=== PATIENT | male | born 1995 | race African-American/Black ===

== ENCOUNTER 2019-12-18 16:33 | Emergency (ER) | payer SELFPAY ==
[~2019-12-18] VITALS: Ht 177.8 cm; Wt 109.0 kg
[2019-12-18 17:59] LABS: BASOPHILS % 0.4 % (0.0-2.0); EOSINOPHILS % 2.1 % (0.0-5.0); HEMATOCRIT. 47.7 % (42.0-52.0); HEMOGLOBIN. 16.5 g/dL (14.0-18.0); LYMPHOCYTES % 25.6 % (20.0-50.0); MEAN CORPUSCULAR HEMOGLOBIN 29.8 pg (28.0-32.0); MEAN CORPUSCULAR VOLUME 85.8 fL (80.0-94.0); MONOCYTES % 8.3 % (2.0-8.0); NEUTROPHILS % 63.6 % (40.0-76.0); PLATELET 295 x1000/uL (130-400); RED BLOOD CELL COUNT 5.55 mill/uL (4.7-6.1); RED CELL DISTRIBUTION WIDTH 13.2 % (11.6-14.6)
[2019-12-18 18:05] LABS: CHLORIDE 104 mEq/L (98-107)
[2019-12-18] MEDS ORDERED: ACETAMINOPHEN 325MG TABLET PO ONE (18:30)
[2019-12-18 19:40] VITALS: BP 127/73
== END 2019-12-18 19:55 | disposition home or self-care (01) ==
LOC: ER 16:33
DX: R51 Headache (principal); R22.1 Localized swelling, mass and lump, neck; J45.909 Unspecified asthma, uncomplicated
CPT/HCPCS: 36415; 70360; 80053; 85025; 99284